=== PATIENT | female | born 1970 | race Caucasian/White ===

== ENCOUNTER 2022-01-19 12:24 | Outpatient (CLI) | payer MEDICAID, SELFPAY ==
--- NOTE | 2022-01-19 12:42 | XR_ITS ---
WS: [email or web address] CERVICAL SPINE 3 VIEWS HISTORY: CHRONIC NECK PAIN FOR MORE THAN 3 MONTHS COMPARISON: None available. Straightening and reversal normal cervical lordosis. Reversal is centered at C5. Severe disc space na rrowing and osteophytosis at C5-6 and C6-7. No fracture. No prevertebral soft tissue swelling. Bilateral masses of C1 and C2 are aligned. There is very mild asymmetry with positioning of the odont oid process to the lateral mass of C1 but this is probably due to rotation of the patient head. Facet joints demonstrate mild atherosclerotic disease at C5-6 and C6-7. Soft tissues are normal. XR/XR cervical spine 3V* [id number] IMPRESSION: 1. Straightening and reversal normal cervical lordosis centered at C5. 2. Severe degenerative disc disease at C5-6 and C6-7. 3. No fracture.
--- NOTE | 2022-01-19 12:42 | XR_ITS ---
WS: [email or web address] LEFT SHOULDER: 2 VIEW(S) TECHNIQUE: Internal and external rotation. HISTORY: L CHRONIC SHOULDER PAIN COMPARISON: None available. No fracture or dislocation or soft tissue abnormality. Very minimal narrowing at the AC joint. Very minimal cortical irregularity along the posterior latera l humeral head. Remote healed rib fractures in the posterior LEFT fifth and sixth ribs. XR/XR shoulder LT min 2V* [id number] IMPRESSION: 1. Minimal AC joint arthritis. 2. Very minimal cortical irregularity along the posterior humeral head.
== END 2022-01-19 12:25 | disposition home or self-care (01) ==
LOC: RAD 12:30
PROVIDERS: PCP Family Medicine; Visit Provider Family Medicine
DX: M25.512 Pain in left shoulder (principal); M19.012 Primary osteoarthritis, left shoulder
CPT/HCPCS: 72040; 73030

== ENCOUNTER → 2022-02-07 09:22 | Outpatient (BNVA) | payer MEDICAID, SELFPAY | PROVIDERS: PCP Family Medicine; Referring Provider Family Medicine; Visit Provider Physician Assistant | DX: M75.42 Impingement syndrome of left shoulder (principal); M47.22 Other spondylosis with radiculopathy, cervical region | CPT/HCPCS: 72050 ==

== ENCOUNTER 2022-02-15 13:55 | Outpatient (CLI) | payer MEDICAID, SELFPAY ==
--- NOTE | 2022-02-15 14:27 | MM_ITS ---
WS: [email or web address] BILATERAL 3D TOMOSYNTHESIS DIGITAL SCREENING MAMMOGRAPHY WITH CAD CLINICAL INFORMATION: SCREENING HISTORY: Screening mammogram. No current complaints. COMPARISON: None. TECHNIQUE: Bilateral CC and MLO views. FINDINGS: The breasts are composed of heterogeneous fibroglandular density tissue, which can limit the detectio n of small underlying mass lesions. No suspicious mass, asymmetry, calcifications, or architectural d istortion. No evidence of malignancy. MM/[place] [id number] IMPRESSION: BI-RADS: 1-Negative FOLLOW UP: 1 Year Follow-up Recommend return to annual screening mammography.
== END 2022-02-15 13:56 | disposition home or self-care (01) ==
PROVIDERS: PCP Family Medicine; Visit Provider Family Medicine
DX: Z12.31 Encounter for screening mammogram for malignant neoplasm of breast (principal)
CPT/HCPCS: 77063; 77067

== ENCOUNTER → 2022-08-15 13:17 | Outpatient (BNVA) | payer MEDICAID, SELFPAY | PROVIDERS: PCP Family Medicine; Visit Provider Physician Assistant | DX: M47.22 Other spondylosis with radiculopathy, cervical region (principal) | CPT/HCPCS: 72050 ==

== ENCOUNTER 2022-10-10 15:28 | Outpatient (CLI) | payer MEDICAID, SELFPAY ==
--- NOTE | 2022-10-10 15:15 | MR_ITS ---
WS: [email or web address] MRI CERVICAL SPINE NONCONTRAST TECHNIQUE: Sagittal T1, T2 and STIR imaging. Axial T2, gradient, and fiesta imaging. CLINICAL INFORMATION: M47.22 - Other spondylosis with radiculopathy, cervical r... COMPARISON: None. FINDINGS: Straightening of the normal cervical lordosis. Cord signal is normal. No high-grade central canal jareth rowing. C2-C3: Normal. C3-C4: Mild facet arthropathy. Spinal canal and foramen are patent. C4-C5: Disc osteophyte complex with endplate ridging. Mild RIGHT and no LEFT foraminal narrowing. Mil d facet arthropathy. RIGHT facet edema with a small amount of periarticular edema likely degenerative or inflammatory. C5-C6: Disc osteophyte complex with endplate ridging. Moderate RIGHT and mild LEFT foraminal narrowin g. Mild facet arthropathy. C6-C7: Disc osteophyte complex with endplate ridging. Moderate LEFT greater than RIGHT bony foraminal narrowing. Mild facet arthropathy. C7-T1: Normal. Visualized brain stem structures: Normal. Prevertebral soft tissues: Normal. MR/MR cervical spin wo con* [id number] IMPRESSION: 1. Straightening of the normal cervical lordosis. Cord signal is normal. No hi gh-grade central canal narrowing. 2. Moderate bony foraminal narrowing RIGHT C4-C5, RIGHT C5-C6, and LEFT greate r than RIGHT C6-C7. 3. Edema within the RIGHT C4-C5 facets likely degenerative or inflammatory.
== END 2022-10-10 15:29 | disposition home or self-care (01) ==
PROVIDERS: PCP Family Medicine; Visit Provider Physician Assistant
DX: M47.22 Other spondylosis with radiculopathy, cervical region (principal); M48.02 Spinal stenosis, cervical region; R60.0 Localized edema
CPT/HCPCS: 72141

== ENCOUNTER 2022-11-16 08:43 | Outpatient (CLI) | payer MEDICAID, SELFPAY ==
--- NOTE | 2022-11-16 09:08 | FL_ITS ---
WS: [email or web address] FL barium swallow modifd [id number] REASON FOR EXAM: Other dysphagia FLUOROSCOPY TIME: 1min [id number] # OF SPOT FILMS: None FINDINGS: Examination was supervised by the speech therapy department. Patient was examined in the upright lateral sitting position. Multiple swallows of varying consistencies of barium was monitored fluoroscopically and video recorde d. Detailed analysis and report of the swallowing will be rendered by the speech therapy department. FL/FL barium swallow modifd [id number] IMPRESSION: Modified barium swallow as above.
== END 2022-11-16 08:44 | disposition home or self-care (01) ==
LOC: RAD 08:44
PROVIDERS: PCP Family Medicine; Visit Provider Family Medicine
DX: R13.19 Other dysphagia (principal)
CPT/HCPCS: 74230; 92611

== ENCOUNTER 2022-11-29 11:35 | Outpatient (CLI) | payer MEDICAID, SELFPAY ==
--- NOTE | 2022-11-29 11:48 | US_ITS ---
WS: [email or web address] Exam: US renal BI* [id number] Date/Time of Exam: 11/29/2022 12:09 PM Reason For Exam: FAMILY HX OF POLYCYSTIC KIDNEY The kidneys are of normal size, shape and location. No sign of solid or cystic renal mass. Small calc ification noted in the left kidney that may represent a nonobstructing stone. The right kidney measur es 11 x 4.8 x 5.23 cm. The left kidney measures 10.6 x 5 x 5.44 cm. The bilateral renal cortices are well preserved. The kidneys are well perfused. No sign of renal obstruction. US/US renal BI* [id number] IMPRESSION: 1. Small calcification in the left kidney that may represent a tiny nonobstruct ing stone. The kidneys are otherwise normal without mass or obstruction. 2. No sign of polycystic kidney disease.
== END 2022-11-29 11:36 | disposition home or self-care (01) ==
PROVIDERS: PCP Family Medicine; Visit Provider Family Medicine
DX: Z82.71 Family history of polycystic kidney (principal)
CPT/HCPCS: 76770

== ENCOUNTER 2023-02-28 10:00 | Outpatient (CLI) | payer MEDICAID, SELFPAY ==
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
== END 2023-02-28 10:01 | disposition home or self-care (01) ==
LOC: RAD 05-28 09:56
PROVIDERS: PCP Family Medicine; Visit Provider Family Medicine
DX: R07.81 Pleurodynia (principal)
CPT/HCPCS: 71101

== ENCOUNTER → 2024-03-05 13:47 | Outpatient (BNVA) | payer MEDICAID, SELFPAY | PROVIDERS: PCP Family Medicine; Visit Provider Specialist | DX: M75.42 Impingement syndrome of left shoulder (principal); M75.122 Complete rotator cuff tear or rupture of left shoulder, not specified as traumatic; M19.012 Primary osteoarthritis, left shoulder | CPT/HCPCS: 73030 ==

== ENCOUNTER 2024-04-25 08:30 | Outpatient (CLI) | payer MEDICAID, SELFPAY ==
--- NOTE | 2024-04-25 08:33 | US_ITS ---
WS: [email or web address] RIGHT UPPER QUADRANT ULTRASOUND HISTORY: RUQ PAIN COMPARISON: None available. Liver: 17.4 cm in length. Liver is measuring top normal size to slightly enlarged. Otherwise normal. Portal Vein: Normal hepatopetal flow with monophasic waveform. Gallbladder: Normally distended gallbladder with no stones or wall thickening. CBD: 0.3 cm Pancreas: Normal size and echogenicity. Right kidney: 9.9 cm in length. Normal size and echogenicity. No hydronephrosis or mass. Aorta and IVC: Unremarkable abdominal aorta and IVC. No ascites. US/US abdomen limited [id number] IMPRESSION: Normal right upper quadrant ultrasound.
== END 2024-04-25 08:31 | disposition home or self-care (01) ==
LOC: RAD 08:31
PROVIDERS: PCP Family Medicine; Visit Provider Family Medicine
DX: R10.11 Right upper quadrant pain (principal)
CPT/HCPCS: 76705

== ENCOUNTER 2024-10-10 07:58 | Outpatient (CLI) | payer MEDICAID, SELFPAY ==
--- NOTE | 2024-10-10 08:01 | MR_ITS ---
WS: [email or web address] MRI LEFT SHOULDER NONCONTRAST TECHNIQUE: Sagittal T2, coronal T1, T2 and proton density imaging. Axial gradient PDE imaging. CLINICAL INFORMATION: CHRONIC LEFT SHOULDER PAIN COMPARISON: None. FINDINGS: Advanced degenerative arthritis AC joint with fluid and edema. Subacromial subdeltoid fluid. Complete loss of the subacromial space. Chronic tear of the supraspinatus with retraction to the level of the glenohumeral joint. Chronic thinning of the infraspinatus which appears intact. Tendinopathy infraspinatus. Normal teres minor. Subscapularis tendon appears intact. Mild degenerative narrowing of the glenohumeral articulation. Intra-articular biceps tendon appears intact. Biceps labral anchor appears intact. Cystic degenerative changes at the greater tuberosity. MR/MR shoulder LT wo con* [id number] IMPRESSION: 1. Advanced degenerative changes AC joint with complete loss of the subacromia l space. 2. Chronic appearing tear of the supraspinatus with retraction to the level of the glenohumeral joint. 3. Chronic thinning of the infraspinatus with tendinopathy. 4. Biceps tendon appears intact within the bicipital groove.
== END 2024-10-10 07:59 | disposition home or self-care (01) ==
LOC: RAD 07:59
PROVIDERS: PCP Family Medicine; Visit Provider Family Medicine
DX: M19.012 Primary osteoarthritis, left shoulder (principal); M75.102 Unspecified rotator cuff tear or rupture of left shoulder, not specified as traumatic; M67.814 Other specified disorders of tendon, left shoulder; R93.7 Abnormal findings on diagnostic imaging of other parts of musculoskeletal system
CPT/HCPCS: 73221

== ENCOUNTER 2024-11-03 17:35 | Outpatient (CLI) | payer MEDICAID, SELFPAY ==
--- NOTE | 2024-11-03 17:38 | XRR_ITS ---
PROCEDURE INFORMATION: Exam: XR Cervical Spine Exam date and time: 11/03/2024 5:43 PM Age: 53 years old Clinical indication: Neck pain; Additional info: Chronic neck pain TECHNIQUE: Imaging protocol: Radiologic exam of the cervical spine. Views: 4 or 5 views. COMPARISON: MR cervical spin wo con* [id number] 10/10/2022 3:52 PM FINDINGS: Bones/joints: Vertebral body spurring and degenerative disc disease can be seen from C4-C7. Bony alignment is normal. No fracture or subluxation noted. Soft tissues: Unremarkable. XR/XR cervical spine 4-5V [id number] IMPRESSION: 1. No acute findings 2. Multilevel arthritic changes are noted.
== END 2024-11-03 17:36 | disposition home or self-care (01) ==
PROVIDERS: PCP Family Medicine; Visit Provider Family Medicine
DX: M50.321 Other cervical disc degeneration at C4-C5 level (principal); M50.322 Other cervical disc degeneration at C5-C6 level; M50.323 Other cervical disc degeneration at C6-C7 level; M25.78 Osteophyte, vertebrae
CPT/HCPCS: 72050

== ENCOUNTER 2025-01-07 09:53 | Outpatient (CLI) | payer MEDICAID, SELFPAY ==
--- NOTE | 2025-01-07 09:56 | FL_ITS ---
WS: [email or web address] Exam: FL barium swallow modifd [id number] Date/Time of Exam: 01/07/2025 9:58 AM Reason For Exam: Other dysphagia Fluoroscopy time: 2min [id number] minutes # of spot films: 0 Modified barium swallow test was performed in conjunction with the speech therapy service. Oropharyngeal phase of swallowing was normal. The patient tolerated all consistencies of barium mixture foodstuffs without aspiration or penetration. The patient swallowed a barium tablet without difficulty. The tablet readily passed into the stomach. FL/FL barium swallow modifd [id number] IMPRESSION: 1. No aspiration or penetration. A separate report with recommendations will follow from the speech therapy serv ice.
== END 2025-01-07 09:54 | disposition home or self-care (01) ==
LOC: RAD 09:54
PROVIDERS: PCP Family Medicine; Visit Provider Family Medicine
DX: R13.10 Dysphagia, unspecified (principal)
CPT/HCPCS: 74230; 92611

== ENCOUNTER 2025-04-29 09:37 | Outpatient (CLI) | payer MEDICAID, SELFPAY ==
--- NOTE | 2025-04-29 09:46 | CT_ITS ---
WS: [email or web address] CT NECK TECHNIQUE: Contrast-enhanced CT of the neck with coronal and sagittal reformatted images. CLINICAL INFORMATION: DYSPHAGIA, CHRONIC LARYNGITIS, GASTRO-ESOPHAGEAL REFLUX DX COMPARISON: None. DLP: 176.[address] scans at [facility] use at least one of these dose optimization techniques: automated exposure control; mA and/or kV adjustment per patient size (includes targeted exams where dose is matched to clinical indication); or iterative reconstruction. FINDINGS: Parotid glands are normal. Submandibular glands are normal. Normal posterior nasopharynx. Normal parapharyngeal fat. Normal palatine tonsils. Paranasal sinuses and mastoid air cells are well aerated. Normal vallecula and piriform sinuses. No evidence of supraglottic or glottic mass. Normal subglottic airway. Slightly prominent LEFT jugulodigastric lymph nodes measuring 9 to 10 mm. Thyroid gland is normal. Lung apices are well aerated. Straightening of the normal cervical lordosis. Moderate spondylitic changes. Paranasal sinuses and mastoid air cells are well aerated. CT/CT neck w con* [id number] IMPRESSION: 1. No evidence of supraglottic or glottic mass. 2. Normal salivary glands. 3. Slightly prominent LEFT jugulodigastric lymph nodes measuring 9 to 10 mm wi thin normal limits. 4. No cervical lymphadenopathy. 5. LEFT vertebral artery arises from the aortic arch
[2025-04-29] MEDS: iohexol 350 mg/mL 500 mL Btl (per mL) IV (10:01)
== END 2025-04-29 09:38 | disposition home or self-care (01) ==
LOC: RAD 09:40
PROVIDERS: PCP Family Medicine; Visit Provider Otolaryngology
DX: R13.10 Dysphagia, unspecified (principal); J37.0 Chronic laryngitis; K21.9 Gastro-esophageal reflux disease without esophagitis
CPT/HCPCS: 70491

== ENCOUNTER 2025-05-06 14:09 | Outpatient (CLI) | payer MEDICAID, SELFPAY ==
--- NOTE | 2025-05-06 14:20 | MR_ITS ---
WS: [email or web address] MRI HEAD WITHOUT CONTRAST TECHNIQUE: Sagittal T1, T2 axial, T2 axial FLAIR, axial and coronal T1 images, axial susceptibility weighted imaging, axial diffusion weighted images, and coronal T2 images were obtained. CLINICAL INFORMATION: TIA COMPARISON: None. FINDINGS: No evidence of restricted diffusion to suggest acute ischemia. No suspicious intracranial signal abnormalities. Normal pedraza-white differentiation. Normal posterior fossa. Normal vascular flow voids at the skull base. No extra-axial fluid collections. No hemosiderin on the susceptibly weighted images. Paranasal sinuses and mastoid air cells are well aerated. Mild mucosal thickening RIGHT mastoid tip. Normal posterior nasopharynx. MR/MR head wo con* [id number] IMPRESSION: 1. No evidence of restricted diffusion to suggest acute ischemia. 2. No suspicious intracranial signal abnormalities. 3. No hemosiderin on susceptibility-weighted images. 4. No other suspicious findings.
== END 2025-05-06 14:10 | disposition home or self-care (01) ==
LOC: RAD 14:10
PROVIDERS: PCP Family Medicine; Visit Provider Family Medicine
DX: G45.9 Transient cerebral ischemic attack, unspecified (principal); J34.89 Other specified disorders of nose and nasal sinuses
CPT/HCPCS: 70551

== ENCOUNTER 2025-05-08 09:49 | Outpatient (CLI) | payer MEDICAID, SELFPAY ==
--- NOTE | 2025-05-08 09:58 | USCV_ITS ---
Viviana Meyer Age: 54 Gender: F : 1970 Exam Date: 05/08/2025 10:16 Ordering Phys: Yina Lenz DO Technologist: HANSA Exam Location: [facility] [place] Indication: tia Risk Factors: Previous Vascular Surgery: Right Brachial BP: / Left Brachial BP: / Right Left Velocity (cm/s) Spectral Plaque Velocity (cm/s) Spectral Plaque Syst/Diast Broadening Syst/Diast Broadening 52.00/ 18.30 Prox CCA 78.00 / 26.60 70.30/ 26.30 Mid CCA 85.60 / 36.60 56.50/ 22.50 Distal CCA 89.10 / 34.80 60.20/ 23.80 Prox ICA 77.50 / 40.60 64.80/ 34.80 Mid ICA 52.50 / 25.50 52.30/ 26.10 Distal ICA 60.80 / 30.70 80.40 ECA 73.10 1.10 ICA/CCA 0.90 Antegrade Vertebral Antegrade 69.80/ 33.60 cm/s 32.40/ 14.40 cm/s Tri Subclavian Tri 77.30 57.10 FINDINGS Comparison: none available. No significant elevation of systolic or diastolic velocities. Waveforms are normal. Antegrade vertebral arteries. CONCLUSIONS Normal carotid doppler ultrasound. Dr. Mary Ellen Aguila DO (Electronically Signed) Final Date: 08 May 2025 11:51 S
== END 2025-05-08 09:50 | disposition home or self-care (01) ==
LOC: RAD 09:50
PROVIDERS: PCP Family Medicine; Visit Provider Family Medicine
DX: G45.9 Transient cerebral ischemic attack, unspecified (principal)
CPT/HCPCS: 93880